=== PATIENT | male | born 1975 | race Asian ===

== ENCOUNTER 2025-01-26 22:49 | Inpatient (IN) | payer OTHER ==
[~2025-01-26] VITALS: Ht 190.5 cm; Wt 95.2 kg
[2025-01-26 23:30] VITALS: O2SAT 94
--- NOTE | 2025-01-26 23:39 | ED.PDOC ---
SOB-HPI HPI Comments 49-year-old male who came to ER via EMS for shortness of breath. Patient does have a history of asthma. 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 States for the past few weeks he has been having episodes of chest pain, palpitations, which he calls panic attacks. Has been using his albuterol pump with minimal relief. Earlier today you started having shortness of breath again, palpitations, then started experiencing left-sided chest pain. When medics arrived the patient's oxygen saturation was in the 80s, he was given nebulizer treatments and placed on supplemental oxygen. Chief Complaint: Shortness of Breath Time Seen by MD: 23:39 Primary Care Provider: RUTHY Cook notes: Nurses Notes Information Source: Patient, Emergency Med Personnel Mode of Arrival: EMS Past Medical History PAST MEDICAL HISTORY: Asthma Surgical History: Denies all surgeries Social History Smoker: Non-Smoker Alcohol: Denies ETOH Use Drugs: Marijuana Lives In: Home Constitutional: denies: chills, diaphoresis, fatigue, fever, malaise, sweats, weakness, others EENTM: denies: blurred vision, double vision, ear bleeding, ear discharge, ear drainage, ear pain, ear ringing, eye pain, eye redness, hearing loss, mouth pain, mouth swelling, nasal discharge, nose bleeding, nose congestion, nose pain, photophobia, tearing, throat pain, throat swelling, voice changes, others Respiratory: reports: SOB at rest, shortness of breath, wheezing; denies: c ough, hemoptysis, orthopnea, SOB with excertion, stridor, others Cardiovascular: reports: chest pain; denies: dizzy spells, diaphoresis, Dyspnea on exertion, edema, irregular heart beat, left arm pain, lightheadedness, palpitations, PND, syncope, others Gastrointestinal: denies: abdomen distended, abdominal pain, blood streaked bowels, constipated, diarrhea, dysphagia, difficulty swallowing, hematemesis, melena, nausea, poor appetite, poor fluid intake, rectal bleeding, rectal pain, vomiting, others Genitourinary: denies: burning, dysuria, flank pain, frequency, hematuria, incontinence, penile discharge, penile sore, pain, testicle pain, testicle swelling, urgency, others Neurological: denies: dizziness, fainting, headache, left sided numbness, left sided weakness, numbness, paresthesia, pre-existing deficit, right sided numbness, right sided weakness, seizure, speech problems, tingling, tremors, weakness, others Musculoskeletal: denies: back pain, gout, joint pain, joint swelling, muscle pain, muscle stiffness, neck pain, others Integumetry: denies: bruises, change in color, change in hair/nails, dryness, laceration, lesions, lumps, rash, wounds, others Allergic/Immunocompromised: denies: Difficulty Healing, Frequent Infections, Hives, Itching, others Hematologic/Lymphatic: denies: anemia, blood clots, easy bleeding, easy bruising, swollen glands, others Endocrine: denies: excessive hunger, excessive sweating, excessive thirst, excessive urination, flushing, intolerance to cold, intolerance to heat, unexplained weight gain, unexplained weight loss, others Psychiatric: denies: anxiety, bipolar disorder, depression, hopeless, panic disorder, schizophrenia, sleepless, suicidal, others Physical Exam General Appearance: No Apparent Distress, Normal HEENT: Normal ENT Inspection, Pharynx Normal, TMs Normal Neck: Full Range of Motion, Non-Tender, Normal, Normal Inspection Respiratory: Chest Non-Tender, No Accessory Muscle Use, Wheezing Cardiovascular: No Edema, No JVD, No Murmur, No Gallop, Normal Peripheral Pulses, Regular Rate/Rhythm Breast Exam: Deferred Gastrointestinal: No Organomegaly, Non Tender, No Pulsatile Mass, Normal Bowel Sounds, Soft Genitalia: Deferred Pelvic: Deferred Rectal: Deferred Extremities: No calf tenderness, Normal capillary refill, Normal inspection, Normal range of motion, Non-tender, No pedal edema Musculoskeletal : Apperance: Normal Neurologic: Alert, traffic signal technician II-XII nml as Tested, No Motor Deficits, Normal Affect, Normal Mood, No Sensory Deficits Cerebellar Function: Normal Reflexes: Normal Skin: Dry, Normal Color, Warm Lymphatic: No Adenopathy EKG EKG : Pulse Rate (adult): 109 [place]: Normal Cardiac Rhythm: ST Block: None Hypertrophy: None ST: Normal Was a procedure done? Was a procedure done?: No Differential Dx Differential Diagnosis: Asthma, Bronchitis, Panic Attack, Respiratory Distress X-Ray, Labs, Meds, VS Vital Signs Date Time Temp Pulse Resp B/P (MAP) Pulse Ox O2 Delivery O2 Flow Rate FiO2 01/27/25 03:26 20 95 Nasal Cannula* 2 28 01/26/25 23:54 99.4 104 19 153/83 (106) 94 99.4 01/26/25 23:30 94 Nasal Cannula* 2 01/26/25 23:26 99.5 109 22 172/94 98 99.5 01/26/25 23:04 109 Lab Test 01/27/25 00:46 01/26/25 23:42 Range/Units Troponin I High Sensitivity 7 5 </=54 ng/L Thyroid Stimulating Hormone (TSH) Pending White Blood Count 12.8 H 4.4-10.8 10^3/uL Red Blood Count 4.98 4.5-5.90 10^6/uL Hemoglobin 16.3 13.5-17.5 g/dL Hematocrit 47.5 41.0-53.0 % Mean Corpuscular Volume 95.3 80.0-100.0 fL Mean Corpuscular Hemoglobin 32.6 H 28.0-32.0 pg Mean Corpuscular Hemoglobin Concent 34.2 32.0-36.0 g/dL Red Cell Distribution Width 12.0 11.8-14.3 % Platelet Count 225 140-450 10^3/uL Mean Platelet Volume 8.2 6.9-10.8 fL Neutrophils (%) (Auto) 79.3 37.0-80.0 % Lymphocytes (%) (Auto) 6.6 L 10.0-50.0 % Monocytes (%) (Auto) 8.5 0.0-12.0 % Eosinophils (%) (Auto) 5.0 0.0-7.0 % Basophils (%) (Auto) 0.6 0.0-2.0 % Neutrophils # (Auto) 10.2 H 1.6-8.6 10 ^3/uL Lymphocytes # (Auto) 0.9 0.4-5.4 10 ^3/uL Monocytes # (Auto) 1.1 0-1.3 10 ^3/uL Eosinophils # (Auto) 0.6 0-0.8 10 ^3/uL Basophils # (Auto) 0.1 0-0.2 10 ^3/uL Nucleated Red Blood Cells 0.1 % Sodium Level 139 136-145 mmol/L Potassium Level 4.4 3.5-5.1 mmol/L Chloride Level 102 98-107 mmol/L Carbon Dioxide Level 28 20-31 mmol/L Anion Gap 9 5-15 Blood Urea Nitrogen 9 9-23 mg/dL Creatinine 1.10 0.700-1.30 mg/dL Glomerular Filtration Rate Calc 83 >90 mL/min BUN/Creatinine Ratio 8.2 L 10.0-20.0 Serum Glucose 116 H 74-106 mg/dL Hemoglobin A1c Pending Calcium Level 9.4 8.7-10.4 mg/dL B-Type Natriuretic Peptide 5.55 0-100 pg/mL Current Medications Medications (Trade) Dose Ordered Sig/[place] Route Start Time Stop Time Status Last Admin Prednisone 60 mg ONCE ONCE PO 01/26/25 23:45 01/26/25 23:46 DC 01/27/25 00:15 Magnesium Sulfate/ Dextrose 100 ml @ 400 mls/hr ONCE ONCE IV 01/26/25 23:45 01/26/25 23:59 DC 01/27/25 00:12 Albuterol (Ventolin Medneb) 5 mg ONCE ONCE NEB 01/27/25 03:15 01/27/25 03:16 DC 01/27/25 03:26 Ipratropium [place] (Atrovent Medneb) 0.5 mg ONCE ONCE NEB 01/27/25 03:15 01/27/25 03:16 DC 01/27/25 03:26 Time of 1ST Reevaluation: 23:35 Reevaluation 1ST: Unchanged Patient Education/Counseling: Diagnosis, Treatment Family Education/Counseling: No Family Present SEPSIS Sepsis Screen Date sepsis recognized/suspect: Jan 26, 2025 Time Sepsis recognized/suspect: 2254 Recent Procedure: No Respiratory Rate >20: Yes Heart Rate >90: Yes Temp<36 C (96.8 F) or >38.3 C: No SBP <90 or MAP <65 mmHG: No New Acute Mental Status Change: No Is the patient on CPAP, BIPAP,: No Physician Orders Chest Portable (01/26/25 23:35) Electrocardigram (01/27/25 01:17) Allergies (01/27/25 03:14) Code Status (01/27/25 03:14) Oxygen Per Hour (01/27/25 03:14) Complete Blood Count (01/28/25 04:00) Comprehensive Metabolic Panel (01/28/25 04:00) Enoxaparin Sodium (Lovenox) (01/27/25 08:00) Oxygen By Nasal Cannula (01/27/25 03:14) Notify Of Changes From Base (01/27/25 03:14) Cnc Cutting Operator For 24 Hours (01/27/25 03:14) Admit (01/27/25 03:34) Albuterol Medneb (Ventolin Medneb) (01/27/25 06:00) Ipratropium Medneb (Atrovent Medneb) (01/27/25 06:00) Methylprednisolone Sod Succ (Solu Medrol (01/27/25 10:00) Azithromycin 500mg/250ml (Zithromax 500m (01/27/25 03:45) Azithromycin 500mg/250ml (Zithromax 500m (01/27/25 10:00) Thyroid Stimulating Hormone (01/27/25 03:38) Hemoglobin A1c (01/27/25 03:38) Vital Signs Date Time Temp Pulse Resp B/P (MAP) Pulse Ox O2 Delivery O2 Flow Rate FiO2 01/27/25 03:26 20 95 Nasal Cannula* 2 28 01/26/25 23:54 99.4 104 19 153/83 (106) 94 99.4 01/26/25 23:30 94 Nasal Cannula* 2 28 01/26/25 23:26 99.5 109 22 172/94 98 99.5 01/26/25 23:04 109 Laboratory Tests Test 01/26/25 23:42 White Blood Count 12.8 10^3/uL (4.4-10.8) H Medications Medications Dose Ordered Sig/[place] Route Start Time Stop Time Status Last Admin Dose Admin Albuterol 5 mg ONCE ONCE NEB 01/27/25 03:15 01/27/25 03:16 DC 01/27/25 03:26 Ipratropium [place] 0.5 mg ONCE ONCE NEB 01/27/25 03:15 01/27/25 03:16 DC 01/27/25 03:26 Magnesium Sulfate/ Dextrose 100 ml @ 400 mls/hr ONCE ONCE IV 01/26/25 23:45 01/26/25 23:59 DC 01/27/25 00:12 Prednisone 60 mg ONCE ONCE PO 01/26/25 23:45 01/26/25 23:46 DC 01/27/25 00:15 Departure 1 Departure Time of Disposition: 03:11 (49-year-old male with past medical history of asthma who came in for evaluation of palpitations, chest tightness, shortness of breath. Patient was hypoxic for the medics, improved with nasal cannula and nebulizer treatments. Upon arrival the patient was given IV magnesium and oral prednisone. Was maintained on supplemental oxygen via nasal cannula. Chest x- ray with no evidence of focal consolidation to suggest a bacterial pneumonia. Chest tightness likely related to asthma exacerbation. However, cardiac workup was obtained. Patient has a heart score of 1. Serial troponins were negative. Patient with no history of heart failure, no lower extremity edema, BNP within normal limits, chest x-ray with no evidence of increased pulmonary vascular congestion, does not seem consistent with heart failure exacerbation. After being observed for several hours the patient was stating that he was feeling better. However, he was taken off of supplemental oxygen and ambulated while in the room. Oxygen saturation immediately after this was in the mid to high 80s. He was placed back on 2-3 L nasal cannula with improvement to the mid 90s. Will be admitted for further management of the asthma exacerbation with hypoxia.) Impression: Primary Impression: Shortness of breath Additional Impressions: Acute hypoxemic respiratory failure Acute asthma exacerbation Disposition: ADMITTED INPATIENT Admit to: Med Surg Condition: Fair Critical Care Note Critical Care Time?: Yes (45 min-critical care time only) Critical care comment: Patient with wheezing, hypoxia related to asthma exacerbation. Required IV magnesium, oral steroids, Duo nebulizer treatments and supplemental oxygen via nasal cannula Stability Stability form required: No Heart Score Heart Score: Heart Score Response (Comments) Value History Slightly Suspicious 0 EKG Normal 0 Age 45-64 1 Risk Factors No known risk factors 0 Troponin Normal limit 0 Total 1 I personally scribed for SINDHU TAYLOR MD ([email or web address]) on 01/26/25 at 23:39. Electronically submitted by Pancho Bueno ([email or web address]). SINDHU TAYLOR MD Jan 26, 2025 23:39
[2025-01-26 23:57] LABS: Hematocrit 47.5 % (41.0-53.0); Hemoglobin 16.3 g/dL (13.5-17.5); Mean Corpuscular Hemoglobin 32.6 pg (28.0-32.0); Mean Corpuscular Volume 95.3 fL (80.0-100.0); Nucleated Red Blood Cells % 0.1 %
[2025-01-27] VITALS (14 sets, daily range): BP systolic 146–153; BP diastolic 83–87; PULSE 80–117; RESP 18–22; TEMP 97.8; O2SAT 92–99
[2025-01-27 00:05] LABS: Chloride 102 mmol/L (98-107); Potassium 4.4 mmol/L (3.5-5.1); Sodium 139 mmol/L (136-145)
[2025-01-27 00:06] LABS: Anion Gap 9 (5-15); Carbon Dioxide 28 mmol/L (20-31)
[2025-01-27 00:07] LABS: Calcium 9.4 mg/dL (8.7-10.4)
[2025-01-27 00:12] LABS: BUN/Creatinine Ratio 8.2 (10.0-20.0)
[2025-01-27] MEDS: MAGNESIUM SULFATE 1GM/100ML 100 ML IV ONE (00:12)
[2025-01-27 00:13] LABS: Blood Urea Nitrogen 9 mg/dL (9-23); Glucose 116 mg/dL (74-106)
[2025-01-27] MEDS: predniSONE 20 MG TAB PO ONE (00:15)
--- NOTE | 2025-01-27 00:29 | DVH ---
CHEST RADIOGRAPH Indication: chest pain, asthma exacerbation Technique: Single frontal view of the chest was obtained COMPARISON: None FINDINGS: Lines and Tubes: None Lungs: Clear Pleura: No effusion. No pneumothorax. Cardiomediastinal contours: Unremarkable Bones: Unremarkable IMPRESSION: 1. No acute disease.
[2025-01-27] MEDS: IPRATROPIUM BROM 0.5 MG/2.5ML INH SOL NEB ONE (03:26)
[2025-01-27] MEDS: ALBUTEROL SULF 2.5 MG/0.5ML(0.5%) NEB SOLN NEB ONE (03:26)
--- NOTE | 2025-01-27 03:31 | DVHHPRES ---
History of Present Illness Resident Creating Document: KEEGAN PEREZ RESIDENT History of Present Illness Mr Richi Koch, a 49-year-old male with past medical history of asthma, significant occupational exposure to marijuana, marijuana use disorder presented to the ER accompanied by , with the complaints of shortness of breaths and panic attacks. The patient reports he was having cold and nonproductive, whitish cough for last few days. However, suddenly this afternoon the patient started reporting he can not breathe and was going outside of the house for fresh air. The measured his saturation by pulse oximetry, which was available at their house, initially his saturation was 90 % and at some point it dropped down to 80s. Then they decided to come to the ER. Patient described the panic attack as he was struggling to breathe, hyperventilating, was feeling anxious. He also reports having mild chest pain associated with this episode. His chest pain has no relation with breathing or position changes. He denies any fever, sick contacts, recent travel history, urinary symptoms or any other complaints. Past medical history: Asthma, panic attacks Past surgical history: None Allergies: None Marijuana: Actively use since last 25 years Cigarettes: None Alcohol: Rarely Family doctor: None, they go to urgent care whenever need, however would not mind having a PCP. Code status: Full code Review of Systems Respiratory: Cough, Shortness of breath, Wheezing Allergies: Coded Allergies: NO KNOWN ALLERGIES (Unverified , 11/17/15) Exam Vital Signs Vital Signs Date Time Temp Pulse Resp B/P (MAP) Pulse Ox O2 Delivery O2 Flow Rate FiO2 01/27/25 03:26 20 95 Nasal Cannula* 2 28 01/26/25 23:54 99.4 104 153/83 (106) 99.4 Exam Pt is lying on bed General Appearance: Alert, Oriented X3, Cooperative, Mild distress HEENT: Atraumatic, Mucous membranes moist/pink Respiratory: Wheezing over both lung haynes, Normal air movement, No added sounds Cardiovascular: Regular rate, Normal S1, Normal S2, No murmurs Abdominal/ : Active bowel sounds, Soft, no distention, no tenderness Extremities: No edema, Normal pulses, No tenderness/swelling Skin: No Significant rash, except past surgical scars Neuro: Normal speech, sensorimotor deficits none Psych/Mental Status: Mental status NL, Mood NL Nurse was there as welding machine operator arc during examination Labs/Xrays Labs Test 01/27/25 00:46 01/26/25 23:42 Range/Units Troponin I High Sensitivity 7 </=54 ng/L White Blood Count 12.8 H 4.4-10.8 10^3/uL Red Blood Count 4.98 4.5-5.90 10^6/uL Hemoglobin 16.3 13.5-17.5 g/dL Hematocrit 47.5 41.0-53.0 % Mean Corpuscular Volume 95.3 80.0-100.0 fL Mean Corpuscular Hemoglobin 32.6 H 28.0-32.0 pg Mean Corpuscular Hemoglobin Concent 34.2 32.0-36.0 g/dL Red Cell Distribution Width 12.0 11.8-14.3 % Platelet Count 225 140-450 10^3/uL Mean Platelet Volume 8.2 6.9-10.8 fL Neutrophils (%) (Auto) 79.3 37.0-80.0 % Lymphocytes (%) (Auto) 6.6 L 10.0-50.0 % Monocytes (%) (Auto) 8.5 0.0-12.0 % Eosinophils (%) (Auto) 5.0 0.0-7.0 % Basophils (%) (Auto) 0.6 0.0-2.0 % Neutrophils # (Auto) 10.2 H 1.6-8.6 10 ^3/uL Lymphocytes # (Auto) 0.9 0.4-5.4 10 ^3/uL Monocytes # (Auto) 1.1 0-1.3 10 ^3/uL Eosinophils # (Auto) 0.6 0-0.8 10 ^3/uL Basophils # (Auto) 0.1 0-0.2 10 ^3/uL Nucleated Red Blood Cells 0.1 % Sodium Level 139 136-145 mmol/L Potassium Level 4.4 3.5-5.1 mmol/L Chloride Level 102 98-107 mmol/L Carbon Dioxide Level 28 20-31 mmol/L Anion Gap 9 5-15 Blood Urea Nitrogen 9 9-23 mg/dL Creatinine 1.10 0.700-1.30 mg/dL Glomerular Filtration Rate Calc 83 >90 mL/min BUN/Creatinine Ratio 8.2 L 10.0-20.0 Serum Glucose 116 H 74-106 mg/dL Calcium Level 9.4 8.7-10.4 mg/dL B-Type Natriuretic Peptide 5.55 0-100 pg/mL SEPSIS Sepsis Screen Date sepsis recognized/suspect: Jan 27, 2025 Time Sepsis recognized/suspect: 0000 Recent Procedure: No On Antibiotic Therapy: No Respiratory Rate >20: No Heart Rate >90: Yes Temp<36 C (96.8 F) or >38.3 C: Yes SBP <90 or MAP <65 mmHG: No New Acute Mental Status Change: No Is the patient on CPAP, BIPAP,: No Physician Orders Chest Portable (01/26/25 23:35) Electrocardigram (01/27/25 01:17) Admit (01/27/25 03:14) Allergies (01/27/25 03:14) Code Status (01/27/25 03:14) Oxygen Per Hour (01/27/25 03:14) Complete Blood Count (01/28/25 04:00) Comprehensive Metabolic Panel (01/28/25 04:00) Lovenox 40mg (01/27/25 08:00) Oxygen By Nasal Cannula (01/27/25 03:14) Notify Md Of Changes From Base (01/27/25 03:14) Nurse Practitioner For 24 Hours (01/27/25 03:14) Vital Signs Date Time Temp Pulse Resp B/P (MAP) Pulse Ox O2 Delivery O2 Flow Rate FiO2 01/27/25 03:26 20 95 Nasal Cannula* 2 28 01/26/25 23:54 99.4 104 19 153/83 (106) 94 99.4 01/26/25 23:30 94 Nasal Cannula* 2 28 01/26/25 23:26 99.5 109 22 172/94 98 99.5 01/26/25 23:04 109 Laboratory Tests Test 01/26/25 23:42 White Blood Count 12.8 10^3/uL (4.4-10.8) H Medications Medications Dose Ordered Sig/[place] Route Start Time Stop Time Status Last Admin Dose Admin Albuterol 5 mg ONCE ONCE NEB 01/27/25 03:15 01/27/25 03:16 DC 01/27/25 03:26 5 MG Ipratropium [place] 0.5 mg ONCE ONCE NEB 01/27/25 03:15 01/27/25 03:16 DC 01/27/25 03:26 0.5 MG Magnesium Sulfate/ Dextrose 100 ml @ 400 mls/hr ONCE ONCE IV 01/26/25 23:45 01/26/25 23:59 DC 01/27/25 00:12 400 MLS/HR Prednisone 60 mg ONCE ONCE PO 01/26/25 23:45 01/26/25 23:46 DC 01/27/25 00:15 60 MG Assessment/Plan Assessment/Plan Acute hypoxic respiratory failure Acute exacerbation of asthma Leukocytosis -oxygen by nasal cannula -breathing treatment by ipratropium and albuterol -methylprednisolone -magnesium -IV azithromycin due to leukocytosis -EKG reviewed, no acute ischemic changes Subclinical hyperthyroidism/euthyroid sick syndrome Low TSH Free T3, free T4, total T3 ordered GI prophylaxis: Pantoprazole DVT prophylaxis: Lovenox Diet: Regular Goals of care discussed with the patient for more than 27 minutes: Full code status Case discussed with Dr. Sotomayor, patient and RN Plan discussed with: Patient, Other My Orders Orders - KEEGAN PEREZ Procedure Category Date Status Time Admit ADMIT 01/27/25 Verified 03:14 Allergies [facility] 01/27/25 Verified 03:14 Code Status CODE 01/27/25 Verified 03:14 Oxygen Per Hour RT 01/27/25 Verified 03:14 Complete Blood Count LAB 01/28/25 Verified 04:00 Comprehensive LAB 01/28/25 Verified Metabolic Panel 04:00 Lovenox 40mg PHA 01/27/25 Verified 08:00 Oxygen By Nasal RT 01/27/25 Verified Cannula 03:14 Notify Of Changes [facility] 01/27/25 Verified From Base 03:14 Nurse Practitioner For [facility] 01/27/25 Verified 24 Hours 03:14 Visit Coding STANDARD RES Billing Provider: KEEGAN PEREZ Date of Service if different f: Jan 27, 2025 Common Visit Codes: 90905-[id number] INP/OBS CARE (HIGH) Secondary Visit Codes: 65739-FIBGLAHN CARE PLAN 30 MINUTES KEEGAN PEREZ Jan 27, 2025 03:31
[2025-01-27] MEDS: AZITHROMYCIN 500MG/250ML 250 ML IV ONE (05:23)
[2025-01-27 05:51] LABS: Free T3 4.32 pg/mL (2.3-4.2); Free T4 (Free Thyroxine) 1.3 ng/dL (0.89-1.76)
[2025-01-27 07:00] LABS: Urine Protein, UAD Negative (Negative)
[2025-01-27] MEDS: ALBUTEROL SULF 2.5 MG/0.5ML(0.5%) NEB SOLN NEB SCH (07:29)
[2025-01-27] MEDS: IPRATROPIUM BROM 0.5 MG/2.5ML INH SOL NEB SCH (07:29)
[2025-01-27] MEDS: ENOXAPARIN SOD 40 MG/0.4 ML SYRINGE SC SCH (08:36)
[2025-01-27 09:10] LABS: Cannabinoid Screen, Urine Neg (NEGATIVE)
[2025-01-27 09:12] LABS: Amphetamine Screen, Urine Neg (NEGATIVE); Barbiturate Scree,Urine Neg (NEGATIVE); Benzodiazephine Screen, Urine Neg (NEGATIVE); Cocaine Screen, Urine Neg (NEGATIVE); Opiate Scree,Urine Neg (NEGATIVE); Phencyclidine Screen, Urine Neg (NEGATIVE)
[2025-01-27] MEDS: methylPREDNISolone SOD SUCC 40 MG/ML VL IV SCH (09:36)
--- NOTE | 2025-01-27 10:10 | ECG ---
[facility] Test Date: 2025-01-26 Test Time: 23:04:16 Pat Name: ASHLEY PARKS Department: ED Room: 0284T Gender: M Hand Paster: MARGARITA : 1975 Requested By: SINDHU TAYLOR Order Number: [id number] Reading MD: Saw Moss Measurements Intervals Wheeler Rate: 109 P: 91 OR: 152 QRS: -25 QRSD: 87 T: 73 QT: 304 QTc: 410 Interpretive Statements Sinus tachycardia Right atrial enlargement Borderline left axis deviation RSR' in V1 or V2, probably normal variant Electronically Signed On 02-02-2025 18:44:26 PST by Saw Moss Please click the below link to view image of tracing.
--- NOTE | 2025-01-27 12:13 | DVHPNRES ---
Progress Note Date Seen: Jan 27, 2025 Resident Creating Document: MONAE TREVIÑO RESIDENT Medical Necessity Reason Pt with a Central, PICC or Fol: No Subjective Review of Systems Richi Koch is a 49-year-old male past medical history of asthma, marijuana use disorder, anxiety who presents to the hospital with complaints of shortness of breadth since 2 days. Patient reports that he used the albuterol rescue inhaler multiple times to no relief. 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 Patient states that his measured his oxygen saturation at home and it was 83%. He reports using the rescue inhaler every day for a despite times. He also reports that he wakes up 2-3 times at night due to shortness of breath for the past few months. PMHx:asthma, marijuana use disorder, anxiety PSHx: None Family history: nonrelevant Social history: denies smoking, occasional alcohol use, admits to using marijuana daily. Home medication: Albuterol inhaler Allergic history: no known allergies General: patient denies fever, fatigue, weaknes, sweating, any recent changes in appetite and weight HEENT: No headaches, visiual changes, hearing loss, tinnitus, nasal congestion and discharge, and sore throat. Cardiovascular: Denies chest pain, palpitations, dyspnea on exertion, orthopnea, or claudication. Respiratory: complains of shortness of breath Gastrointestinal: Denies nausea, vomiting, dysphagia, odynophagia, heartburn, abdominal pain, flatulence, bloating, diarrhea, constipation, change in stool, or blood in stool. Genitourinary: No dysuria, hematuria, discharge, frequency, urgency, nocturia, incontinence, and urinary retention. Endocrine: No heat or cold intolerance, polydipsia, polyuria, and polyphagia. Neurological: No dizziness, extremity weakness and numbness, tremors, gait disturbance, seizures, and memory impairment. Psychiatric: Denies depression, anxiety,or insomnia. Musculoskeletal: Denies neck pain, stiffness and swelling, back pain, muscle weakness, joint pain, stiffness, swelling, or limited range of motion. Skin: No rashes, itching, skin lesion, changes in hair, nail, skin texture and breast. Hematologic/Lymphatic: Denies easy bruising, bleeding tendencies, or lymph node enlargement. Objective vital signs Vital Sign Date Time Temp Pulse Resp B/P (MAP) Pulse Ox O2 Delivery O2 Flow Rate FiO2 01/27/25 10:47 127 01/27/25 10:01 18 99 01/27/25 10:00 115/75 (88) 01/27/25 09:55 Nasal Cannula* 2 28 01/27/25 07:27 98.3 98.3 Total Intake and Output 01/26/25 01/26/25 01/27/25 15:00 23:00 07:00 Intake Total 100 ml Balance 100 ml medications Current Medications Medications Dose Ordered Sig/[place] Route Start Time Stop Time Status Last Admin Dose Admin Enoxaparin Sodium 40 mg DAILY SC 01/27/25 08:00 02/01/25 08:00 01/27/25 08:36 40 MG Albuterol 2.5 mg Q4HR NEB 01/27/25 06:00 01/27/25 09:55 2.5 MG Ipratropium [place] 0.5 mg Q4HR NEB 01/27/25 06:00 01/27/25 09:55 0.5 MG Methylprednisolone Sodium Succinate 40 mg BID IV 01/27/25 10:00 01/27/25 09:36 40 MG Azithromycin 250 ml @ 125 mls/hr DAILY IV 01/28/25 10:00 Examination General Appearance: Alert, Oriented X3, Cooperative, acute distress HEENT: Atraumatic, PERRLA, EOMI, Mucous membrane moist/pink Respiratory: severe shortness of breath, bilateral wheezing present, on 2 L oxygen Cardiovascular: Regular rate, Normal S1, Normal S2, No murmurs, no chest wall tenderness Abdominal: Normal bowel sounds, Soft, No tenderness, No hepatospenomegaly, No masses Extremities: No clubbing, No cyanosis, No edema, Normal pulses, No tenderness/swelling Skin: No rashes, No breakdown, No significant lesion Neuro: Normal gait, Normal speech, Strength at 5/5 X4 ext, Normal tone, Sensation intact, Cranial nerves 3-12 NL, Reflexes 2+ Psych/Mental Status: Mental status NL, Mood NL laboratory and microbiology Laboratory Tests 01/26/25 23:42 Test 01/26/25 23:42 Range/Units Serum Glucose 116 H 74-106 mg/dL Problem List/Assessment/Plan Problem List/Assessment/Plan Assessment/Plan Acute hypoxic respiratory failure due to below Acute exacerbation of asthma Leukocytosis -oxygen by nasal cannula -breathing treatment by ipratropium and albuterol -methylprednisolone -magnesium -IV azithromycin due to leukocytosis -EKG reviewed, no acute ischemic changes Subclinical hyperthyroidism/euthyroid sick syndrome Low TSH Free T3, free T4, total T3 ordered anxiety Control any home medications Follow up with PCP on discharge Marijuana use disorder Counseled on the importance of marijuana use cessation for 11 mins. GI prophylaxis: Pantoprazole DVT prophylaxis: Lovenox Diet: Regular Goals of care discussed Full code status Case discussed with Dr. Pan Plan discussed with: Patient My Orders My Orders Orders - MONAE TREVIÑO Procedure Category Date Status Time Electrocardigram EKG 01/27/25 Logged 11:05 Date of Service: Jan 27, 2025 Billing Provider: THERESA PAN DO Common Visit Codes: [id number] INP/OBS CARE(HIGH) MONAE TREVIÑO RESIDENT Jan 27, 2025 12:13 THERESA PAN DO Jan 28, 2025 00:20
[2025-01-27] MEDS: ERGOCALCIFEROL 50,000 UNIT(1.25MG) CAP PO SCH (14:55)
[2025-01-27] MEDS ORDERED: ALBU108A5 IN (21:35)
[2025-01-27 23:37] LABS: COVID19 ANTIGEN SOFIA FIA NEGATIVE (NEGATIVE)
[2025-01-28] VITALS (20 sets, daily range): BP systolic 123–147; BP diastolic 74–89; PULSE 83–108; RESP 16–20; TEMP 98–98.7; O2SAT 86–99
[2025-01-28 05:19] LABS: Hematocrit 47.7 % (41.0-53.0); Hemoglobin 16.0 g/dL (13.5-17.5); Mean Corpuscular Hemoglobin 32.3 pg (28.0-32.0); Mean Corpuscular Volume 96.1 fL (80.0-100.0); Nucleated Red Blood Cells % 0.0 %
[2025-01-28 05:26] LABS: Alanine Aminotransferase 26 U/L (7-40); Alkaline Phosphatase 76 U/L (46-116); Calcium 9.8 mg/dL (8.7-10.4); Carbon Dioxide 26 mmol/L (20-31); Chloride 101 mmol/L (98-107); Potassium 4.5 mmol/L (3.5-5.1); Sodium 138 mmol/L (136-145)
[2025-01-28 05:27] LABS: Albumin 4.6 g/dL (3.2-4.8); Anion Gap 11 (5-15); BUN/Creatinine Ratio 15.5 (10.0-20.0); Bilirubin, Total 1.8 mg/dL (0.2-1.0); Blood Urea Nitrogen 17 mg/dL (9-23); Glucose 138 mg/dL (74-106); Total Protein 7.8 g/dL (5.7-8.2)
[2025-01-28] MEDS: AZITHROMYCIN 500MG/250ML 250 ML IV SCH (08:55)
--- NOTE | 2025-01-28 16:24 | DVHPNRES ---
Progress Note Date Seen: Jan 28, 2025 Resident Creating Document: MONAE TREVIÑO Medical Necessity Reason Pt with a Central, PICC or Fol: No Subjective Review of Systems Patient seen at bedside. Shortness of breath improving. On breathing treatment and 2 L oxygen. Richi Koch is a 49-year-old male past medical history of asthma, marijuana use disorder, anxiety who presents to the hospital with complaints of shortness of breadth since 2 days. Patient reports that he used the albuterol rescue inhaler multiple times to no relief. 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 Patient states that his measured his oxygen saturation at home and it was 83%. He reports using the rescue inhaler every day for a despite times. He also reports that he wakes up 2-3 times at night due to shortness of breath for the past few months. PMHx:asthma, marijuana use disorder, anxiety PSHx: None Family history: nonrelevant Social history: denies smoking, occasional alcohol use, admits to using marijuana daily. Home medication: Albuterol inhaler Allergic history: no known allergies General: patient denies fever, fatigue, weaknes, sweating, any recent changes in appetite and weight HEENT: No headaches, visiual changes, hearing loss, tinnitus, nasal congestion and discharge, and sore throat. Cardiovascular: Denies chest pain, palpitations, dyspnea on exertion, orthopnea, or claudication. Respiratory: complains of shortness of breath Gastrointestinal: Denies nausea, vomiting, dysphagia, odynophagia, heartburn, abdominal pain, flatulence, bloating, diarrhea, constipation, change in stool, or blood in stool. Genitourinary: No dysuria, hematuria, discharge, frequency, urgency, nocturia, incontinence, and urinary retention. Endocrine: No heat or cold intolerance, polydipsia, polyuria, and polyphagia. Neurological: No dizziness, extremity weakness and numbness, tremors, gait disturbance, seizures, and memory impairment. Psychiatric: Denies depression, anxiety,or insomnia. Musculoskeletal: Denies neck pain, stiffness and swelling, back pain, muscle weakness, joint pain, stiffness, swelling, or limited range of motion. Skin: No rashes, itching, skin lesion, changes in hair, nail, skin texture and breast. Hematologic/Lymphatic: Denies easy bruising, bleeding tendencies, or lymph node enlargement. Objective vital signs Vital Sign Date Time Temp Pulse Resp B/P (MAP) Pulse Ox O2 Delivery O2 Flow Rate FiO2 01/28/25 14:18 103 18 99 01/28/25 14:12 Nasal Cannula 2.0 01/28/25 14:12 28 01/28/25 13:00 98.0 146/89 (108) 98.0 Total Intake and Output 01/27/25 01/27/25 01/28/25 15:00 23:00 07:00 Intake Total 200 ml Balance 200 ml medications Current Medications Medications Dose Ordered Sig/[place] Route Start Time Stop Time Status Last Admin Dose Admin Enoxaparin Sodium 40 mg DAILY SC 01/27/25 08:00 02/01/25 08:00 01/28/25 08:54 40 MG Albuterol 2.5 mg Q4HR NEB 01/27/25 06:00 01/28/25 14:12 2.5 MG Ipratropium [place] 0.5 mg Q4HR NEB 01/27/25 06:00 01/28/25 14:12 0.5 MG Methylprednisolone Sodium Succinate 40 mg BID IV 01/27/25 10:00 01/28/25 08:54 40 MG Azithromycin 250 ml @ 125 mls/hr DAILY IV 01/28/25 10:00 01/28/25 08:55 125 MLS/HR Ergocalciferol 50,000 unit Q7D PO 01/27/25 14:30 01/27/25 14:55 50,000 UNIT Examination General Appearance: Alert, Oriented X3, Cooperative, acute distress HEENT: Atraumatic, PERRLA, EOMI, Mucous membrane moist/pink Respiratory: severe shortness of breath, bilateral wheezing present, on 2 L oxygen Cardiovascular: Regular rate, Normal S1, Normal S2, No murmurs, no chest wall tenderness Abdominal: Normal bowel sounds, Soft, No tenderness, No hepatospenomegaly, No masses Extremities: No clubbing, No cyanosis, No edema, Normal pulses, No tenderness/swelling Skin: No rashes, No breakdown, No significant lesion Neuro: Normal gait, Normal speech, Strength at 5/5 X4 ext, Normal tone, Sensation intact, Cranial nerves 3-12 NL, Reflexes 2+ Psych/Mental Status: Mental status NL, Mood NL laboratory and microbiology Laboratory Tests 01/28/25 04:48 Test 01/28/25 04:48 Range/Units Serum Glucose 138 H 74-106 mg/dL Problem List/Assessment/Plan Problem List/Assessment/Plan Assessment/Plan Acute hypoxic respiratory failure due to below Acute exacerbation of asthma Leukocytosis -oxygen by nasal cannula -breathing treatment by ipratropium and albuterol -methylprednisolone -magnesium -IV azithromycin due to leukocytosis -EKG reviewed, no acute ischemic changes Subclinical hyperthyroidism/euthyroid sick syndrome Low TSH Free T3, free T4, total T3 ordered anxiety Control any home medications Follow up with PCP on discharge Marijuana use disorder Counseled on the importance of marijuana use cessation for 11 mins. GI prophylaxis: Pantoprazole DVT prophylaxis: Lovenox Diet: Regular Goals of care discussed Full code status Case discussed with Dr. Pan Plan discussed with: Patient My Orders My Orders Orders - MONAE TREVIÑO RESIDENT Procedure Category Date Status Time Regular Diet DIET 01/28/25 Transmitted Lunch Date of Service: Jan 28, 2025 Billing Provider: THERESA PAN DO Common Visit Codes: [id number] INP/OBS CARE(HIGH) MONAE TREVIÑO RESIDENT Jan 28, 2025 16:24
[2025-01-29] VITALS (22 sets, daily range): BP systolic 123–141; BP diastolic 67–89; PULSE 79–118; RESP 14–18; TEMP 96.6–99.1; O2SAT 88–99
--- NOTE | 2025-01-29 15:23 | DVHPNRES ---
Progress Note Date Seen: Jan 29, 2025 Resident Creating Document: VIRY BORRERO RESDIENT Medical Necessity Reason Pt with a Central, PICC or Fol: No Subjective Review of Systems Patient seen and examined at the bedside. Patient is feeling better since admission. But still complained of shortness of breaths. Oxygen stopped, with a saturation dropped to 88% Objective vital signs Vital Sign Date Time Temp Pulse Resp B/P (MAP) Pulse Ox O2 Delivery O2 Flow Rate FiO2 01/29/25 13:54 100 16 99 01/29/25 13:48 Nasal Cannula* 2 28 01/29/25 09:00 98.7 124/79 (94) 98.7 Total Intake and Output 01/28/25 01/28/25 01/29/25 15:00 23:00 07:00 Intake Total 540 ml 650 ml Output Total 900 ml 0 ml Balance -360 ml 650 ml medications Current Medications Medications Dose Ordered Sig/[place] Route Start Time Stop Time Status Last Admin Dose Admin Enoxaparin Sodium 40 mg DAILY SC 01/27/25 08:00 02/01/25 08:00 01/29/25 11:09 40 MG Albuterol 2.5 mg Q4HR NEB 01/27/25 06:00 01/29/25 13:48 2.5 MG Ipratropium [place] 0.5 mg Q4HR NEB 01/27/25 06:00 01/29/25 13:47 0.5 MG Methylprednisolone Sodium Succinate 40 mg BID IV 01/27/25 10:00 01/29/25 11:08 40 MG Azithromycin 250 ml @ 125 mls/hr DAILY IV 01/28/25 10:00 01/29/25 11:09 125 MLS/HR Ergocalciferol 50,000 unit Q7D PO 01/27/25 14:30 01/27/25 14:55 50,000 UNIT Examination General Appearance: Alert, Oriented X3, Cooperative, No acute distress HEENT: Atraumatic, PERRLA, EOMI, Mucous membrane moist/pink Respiratory: Bilateral rhonchi Cardiovascular: Regular rate, Normal S1, Normal S2, No murmurs, no chest wall tenderness Abdominal: Normal bowel sounds, Soft, No tenderness, No hepatospenomegaly, No masses Extremities: No clubbing, No cyanosis, No edema, Normal pulses, No tenderness/swelling Skin: No rashes, No breakdown, No significant lesion Neuro: Normal gait, Normal speech, Strength at 5/5 X4 ext, Normal tone, Sensation intact, Cranial nerves 3-12 NL, Reflexes 2+ Psych/Mental Status: Mental status NL, Mood NL laboratory and microbiology Laboratory Tests 01/28/25 04:48 Test 01/28/25 04:48 Range/Units Serum Glucose 138 H 74-106 mg/dL Labs and/or images reviewed: Labs reviewed by me, Image(s) reviewed by me Problem List/Assessment/Plan Problem List/Assessment/Plan Acute hypoxic respiratory failure due to below Acute exacerbation of asthma Leukocytosis -oxygen by nasal cannula -breathing treatment by ipratropium and albuterol -methylprednisolone -magnesium -IV azithromycin due to leukocytosis -EKG reviewed, no acute ischemic changes Subclinical hyperthyroidism/euthyroid sick syndrome Low TSH Free T3, free T4, total T3 ordered anxiety Control any home medications Follow up with PCP on discharge Marijuana use disorder Counseled on the importance of marijuana use cessation for 11 mins. GI prophylaxis: Pantoprazole DVT prophylaxis: Lovenox Diet: Regular Goals of care discussed Full code status Case discussed with Dr. Pan Plan discussed with: Patient, Other (RN) My Orders My Orders Orders - VIRY BORRERO RESDICELESTINA Procedure Category Date Status Time Comprehensive LAB 01/30/25 Verified Metabolic Panel 04:00 Complete Blood Count LAB 01/30/25 Verified 04:00 Visit Coding STANDARD RES Billing Provider: THERESA PAN DO Date of Service if different f: Jan 29, 2025 Common Visit Codes: [id number] INP/OBS CARE(HIGH) VIRY BORRERO RESDIENT Jan 29, 2025 15:23
[2025-01-30] VITALS (15 sets, daily range): BP systolic 131–154; BP diastolic 72–91; PULSE 77–108; RESP 16–18; TEMP 97.4–98.2; O2SAT 90–99
[2025-01-30 05:13] LABS: Hematocrit 48.2 % (41.0-53.0); Hemoglobin 15.9 g/dL (13.5-17.5); Mean Corpuscular Hemoglobin 31.8 pg (28.0-32.0); Mean Corpuscular Volume 96.3 fL (80.0-100.0); Nucleated Red Blood Cells % 0.0 %
[2025-01-30 05:32] LABS: Alanine Aminotransferase 23 U/L (7-40); Albumin 4.4 g/dL (3.2-4.8); Alkaline Phosphatase 77 U/L (46-116); Anion Gap 11 (5-15); BUN/Creatinine Ratio 17.9 (10.0-20.0); Blood Urea Nitrogen 17 mg/dL (9-23); Calcium 9.6 mg/dL (8.7-10.4); Carbon Dioxide 26 mmol/L (20-31); Chloride 100 mmol/L (98-107); Potassium 4.8 mmol/L (3.5-5.1); Sodium 137 mmol/L (136-145); Total Protein 7.5 g/dL (5.7-8.2)
[2025-01-30 05:33] LABS: Bilirubin, Total 1.8 mg/dL (0.2-1.0); Glucose 129 mg/dL (74-106)
[2025-01-30] MEDS ORDERED: FLUT1AER3 IN (13:49)
[2025-01-30] MEDS ORDERED: PRED20TA2 PO (13:49)
[2025-01-30] MEDS ORDERED: EPIN0.1I11 IJ (13:52)
--- NOTE | 2025-01-30 13:57 | DVHDSRES ---
Discharge Summary Date of Admission Resident Creating Document: VIRY BORRERO Jan 27, 2025 at 03:34 Date of Discharge: Jan 30, 2025 Labs/Diagnostic Data: Laboratory Results Test 01/30/25 04:48 01/27/25 22:57 01/27/25 06:32 01/27/25 00:46 White Blood Count 16.5 10^3/uL (4.4-10.8) Red Blood Count 5.01 10^6/uL (4.5-5.90) Hemoglobin 15.9 g/dL (13.5-17.5) Hematocrit 48.2 % (41.0-53.0) Mean Corpuscular Volume 96.3 fL (80.0-100.0) Mean Corpuscular Hemoglobin 31.8 pg (28.0-32.0) Mean Corpuscular Hemoglobin Concent 33.0 g/dL (32.0-36.0) Red Cell Distribution Width 12.2 % (11.8-14.3) Platelet Count 287 10^3/uL (140-450) Mean Platelet Volume 8.2 fL (6.9-10.8) Neutrophils (%) (Auto) 92.2 % (37.0-80.0) Lymphocytes (%) (Auto) 4.6 % (10.0-50.0) Monocytes (%) (Auto) 2.8 % (0.0-12.0) Eosinophils (%) (Auto) 0.0 % (0.0-7.0) Basophils (%) (Auto) 0.4 % (0.0-2.0) Neutrophils # (Auto) 15.2 10 ^3/uL (1.6-8.6) Lymphocytes # (Auto) 0.8 10 ^3/uL (0.4-5.4) Monocytes # (Auto) 0.5 10 ^3/uL (0-1.3) Eosinophils # (Auto) 0 10 ^3/uL (0-0.8) Basophils # (Auto) 0.1 10 ^3/uL (0-0.2) Nucleated Red Blood Cells 0.0 % Sodium Level 137 mmol/L (136-145) Potassium Level 4.8 mmol/L (3.5-5.1) Chloride Level 100 mmol/L (98-107) Carbon Dioxide Level 26 mmol/L (20-31) Anion Gap 11 (5-15) Blood Urea Nitrogen 17 mg/dL (9-23) Creatinine 0.95 mg/dL (0.700-1.30) Glomerular Filtration Rate Calc 99 mL/min (>90) BUN/Creatinine Ratio 17.9 (10.0-20.0) Serum Glucose 129 mg/dL (74-106) Calcium Level 9.6 mg/dL (8.7-10.4) Total Bilirubin 1.8 mg/dL (0.2-1.0) Aspartate Amino Transferase (AST) 18 U/L (13-40) Alanine Aminotransferase (ALT) 23 U/L (7-40) Alkaline Phosphatase 77 U/L (46-116) Total Protein 7.5 g/dL (5.7-8.2) Albumin 4.4 g/dL (3.2-4.8) Influenza Type A Antigen Negative (Negative) Influenza Type B Antigen Negative (Negative) SARS-CoV-2 Antigen (Rapid) Negative (NEGATIVE) Urine Color Colorless (Yellow) Urine Clarity Clear (Clear) Urine pH 7.0 (5.0-9.0) Urine Specific [place] 1.008 (1.001-1.035) Urine Protein Negative (Negative) Urine Ketones Negative (Negative) Urine Blood Negative /uL (Negative) Urine Nitrite Negative (Negative) Urine Bilirubin Negative (Negative) Urine Urobilinogen Normal mg/dL (Negative) Urine Leukocyte Esterase Negative /uL (Negative) Urine RBC None seen /hpf (0 - 3) Urine Microscopic WBC < 1 /HPF (0-3) Urine Squamous Epithelial Cells None seen /hpf (<5) Urine Bacteria None seen /hpf (None Seen) Urine Glucose 3+ mg/dL (Normal) Urine Opiates Screen Neg (NEGATIVE) Urine Fentanyl Screen Neg (NEGATIVE) Urine Barbiturates Screen Neg (NEGATIVE) Urine Phencyclidine Screen Neg (NEGATIVE) Urine Amphetamines Screen Neg (NEGATIVE) Urine Benzodiazepines Screen Neg (NEGATIVE) Urine Cocaine Screen Neg (NEGATIVE) Urine Cannabinoids Screen Neg (NEGATIVE) Troponin I High Sensitivity 7 ng/L (</=54) Thyroid Stimulating Hormone (TSH) 0.39 uIU/mL (0.55-4.78) Test 01/26/25 23:42 Hemoglobin A1c 4.6 % A1C (<5.7) B-Type Natriuretic Peptide 5.55 pg/mL (0-100) Vitamin D 25-Hydroxy 24.7 ng/mL (30.0-100) Free Thyroxine (T4) Calculated 1.30 ng/dL (0.89-1.76) Free Triiodothyronine (T3) pg/mL 4.32 pg/mL (2.3-4.2) Total Triiodothyronine (TT3) 1.30 ng/mL (0.60-1.81) Other Laboratory Tests 01/30/25 04:48 Brief Hx & Hospital Course: HISTORY OF PRESENT ILLNESS: Richi Koch is a 49-year-old male past medical history of asthma, marijuana use disorder, anxiety who presents to the hospital with complaints of shortness of breadth since 2 days. Patient reports that he used the albuterol rescue inhaler multiple times to no relief. 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 Patient states that his measured his oxygen saturation at home and it was 83%. He reports using the rescue inhaler every day for a despite times. He also reports that he wakes up 2-3 times at night due to shortness of breath for the past few months. HOSPITAL COURSE: Patient was admitted to the hospital due to severe asthma flares, the patient was not able to speak in full sentences. Chest x-ray shows hyperinflated lung with interstitial infiltration. The patient was started on nebulizer, steroid, and was given empiric antibiotic of azithromycin. Per patient's history, he has allergic to marijuana bacteria, the patient was consulted in detail to changes per patient. On 01/30, the patient was feeling better since admission, this patient was able to maintain saturation on room air, discharge plan discussed with the patient and the patient discharged home. DISCHARGE PLAN: Follow up with the PCP within 1 week of the discharge. Follow up with the discharge Clinic within 1 week of the discharge. Follow up with the pulmonology for pulmonary function test. Trelegy inhaler Prednisolone 40 mg daily for 3 days. Epipen, as needed in case of severe allergy/asthma attack FINAL DIAGNOSIS: Acute hypoxic respiratory failure due to below Acute exacerbation of asthma Pneumonia, likely due to Gram-positive/Gram-negative bacteria Sepsis, likely due to above Subclinical hyperthyroidism/euthyroid sick syndrome anxiety Marijuana use disorder Condition at Discharge: Fair Final Diagnosis/Problems List Acute hypoxic respiratory failure due to below Acute exacerbation of asthma Pneumonia, likely due to Gram-positive/Gram-negative bacteria Sepsis, likely due to above Subclinical hyperthyroidism/euthyroid sick syndrome anxiety Marijuana use disorder . Discharge Disposition: Home Discharge Instruct/Medications Scheduled Albuterol Sulfate (Albuterol Sulfate Hfa), 90 MCG IN QIDPRN, (Reported) Dncdhfeqgib-Apbpinzhljoq-Anmwl (Trelegy Ellipta 100-62.5-25 Mcg/INH), 1 AER IN BID Prednisone (Prednisone), 40 MG PO DAILY Scheduled PRN Epinephrine (Anaphylaxis) (Auvi-Q), 0.1 MG IJ O PRN Discharge Statement: "Patient was advised to return to the ER or call 911 if any headaches, dizziness, shortness of breath, chest pain, abdominal pain, bleeding, fevers, or worsening of medical condition. Patient was counseled about treatment plan, medications, possible side effects, patientverbalized understanding. All questions were answered to the best of my ability. This discharge took greater then 30 minutes in planning, reviewing documentation, counseling the patient, and discussing with other team members." ASSESSMENT ASSESSMENT Assessment Visit Coding STANDARD RES Billing Provider: LUIS TRONCOSO MD Date of Service if different f: Jan 30, 2025 Common Visit Codes: 62539-GUM/OBS DISCH DAY >30min VIRY BORRERO RESDIENT Jan 30, 2025 13:57 LUIS TRONCOSO MD Feb 03, 2025 09:56
--- NOTE | 2025-01-31 06:53 | ECG ---
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
--- NOTE | 2025-01-31 14:12 | ECG ---
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
== END 2025-01-30 16:00 | disposition home or self-care (01) | DRG 720 ==
LOC: ER 22:49 → EDUNIT# 22:49 → EDBD 22:49 → OVERFLOW 01-27 03:34 → TELE-CENTR 01-28 16:11 → TELE-WESTW 01-28 16:37
PROVIDERS: ADMIT Student in an Organized Health Care Education/Training Program; ATTEND Student in an Organized Health Care Education/Training Program
DX: A41.59 Other Gram-negative sepsis (principal); J96.01 Acute respiratory failure with hypoxia; J15.69 Pneumonia due to other Gram-negative bacteria; J15.9 Unspecified bacterial pneumonia; J45.901 Unspecified asthma with (acute) exacerbation; F12.10 Cannabis abuse, uncomplicated; F41.9 Anxiety disorder, unspecified; Z20.822 Contact with and (suspected) exposure to COVID-19; D72.829 Elevated white blood cell count, unspecified; T40.715A Adverse effect of cannabis, initial encounter; Y92.89 Other specified places as the place of occurrence of the external cause
CPT/HCPCS: 36415; 71045; 80048; 80053; 80307; 81001; 82306; 83036; 83880; 84439; 84443; 84480; 84481; 84484; 85025; 87426; 87804; 93005; 94640; 96365; 99291; G0378